=== PATIENT | female | born 1950 | race Caucasian/White ===

== ENCOUNTER 2019-05-30 15:58 | Emergency (ER) | payer BC, OTHER ==
[~2019-05-30] VITALS: Ht 152.4 cm; Wt 47.6 kg
[2019-05-30 16:02] VITALS: BP 150/77
== END 2019-05-30 16:41 | disposition home or self-care (01) ==
LOC: ER 15:58
DX: S80.862A Insect bite (nonvenomous), left lower leg, initial encounter (principal); S80.861A Insect bite (nonvenomous), right lower leg, initial encounter; Z93.1 Gastrostomy status; W57.XXXA Bitten or stung by nonvenomous insect and other nonvenomous arthropods, initial encounter; Y93.89 Activity, other specified; Y92.89 Other specified places as the place of occurrence of the external cause; Y99.8 Other external cause status

== ENCOUNTER 2023-05-05 18:22 | Emergency (ER) | payer BC ==
[~2023-05-05] VITALS: Ht 154.9 cm; Wt 47.6 kg
[2023-05-05 18:48] VITALS: BP 134/67; TEMP 98.4
[2023-05-05] MEDS ORDERED: DIPH35CR TP (20:54)
[2023-05-05 20:57] VITALS: O2SAT 100
== END 2023-05-05 20:59 | disposition home or self-care (01) ==
LOC: ER 18:35
DX: S50.861A Insect bite (nonvenomous) of right forearm, initial encounter (principal); S20.461A Insect bite (nonvenomous) of right back wall of thorax, initial encounter; S10.96XA Insect bite of unspecified part of neck, initial encounter; Z60.2 Problems related to living alone; W57.XXXA Bitten or stung by nonvenomous insect and other nonvenomous arthropods, initial encounter; Y93.89 Activity, other specified; Y92.89 Other specified places as the place of occurrence of the external cause; Y99.8 Other external cause status